=== PATIENT | male | born 1935 | race Caucasian/White ===

== ENCOUNTER 2016-11-18 19:34 | Inpatient (IN) | payer OTHER ==
[~2016-11-18] VITALS: Ht 172.7 cm; Wt 65.8 kg
[~2016-11-18 19:34] MED LIST: BUPIVACAINE /EPINEPHRINE/PF 0.25% 30 ML VIAL INJ ONE; DEXAMETHASONE SOD PHOSPHATE 4 MG/ML VIAL IVP ONE; KETAMINE HCL 500 MG/10 ML VIAL IVP ONE; KETOROLAC TROMETHAMINE 15 MG VIAL IVP ONE; LR 1,000 ML IV.SOLN IV ONE; NS IRRIG SOLN 1000 ML IR ONE; ONDANSETRON HCL 4 MG/2 ML VIAL IVP ONE; PROPOFOL 200MG/ 20ML VIAL (DIPRIVAN) IV ONE; ROCURONIUM BROMIDE 10 MG/ML (ZEMURON) IV ONE; SEVOFLURANE 15 MIN GAS INH ONE; fentaNYL CITRATE 250 MCG/5 ML AMP IV ONE
[2016-11-18 19:41] VITALS: BP_SYST 128
[2016-11-18 20:02] LABS: BASOPHILS % (AUTO) 0.4 % (0.0-2.0); EOSINOPHILS # (AUTO) 0.1 K/uL (0.0-0.4); EOSINOPHILS % (AUTO) 1.8 % (0.0-4.0); HEMATOCRIT 37.1 % (36-54); HEMOGLOBIN 12.4 g/dL (14.0-18.0); LYMPHOCYTES # (AUTO) 2.9 K/uL (1.0-5.5); LYMPHOCYTES % (AUTO) 38.6 % (20.5-51.5); MEAN CORPUSCULAR HEMOGLOBIN 29 pg (27-31); MEAN CORPUSCULAR HGB CONC 33 % (32-36); MEAN CORPUSCULAR VOLUME 88 fL (79.0-98.0); MONOCYTES # (AUTO) 0.7 K/uL (0.0-1.0); MONOCYTES % (AUTO) 8.9 % (1.7-9.3); NEUTROPHILS # (AUTO) 3.9 K/uL (1.8-7.7); NEUTROPHILS % (AUTO) 50.3 % (40.0-70.0); PLATELET COUNT (AUTO) 184 K/uL (130-430); RED BLOOD CELL COUNT(AUTO) 4.22 MIL/uL (4.2-6.2); RED CELL DISTRIBUTION WIDTH 13.5 % (9.0-15.0); WHITE BLOOD COUNT (AUTO) 7.6 K/uL (4.8-10.8)
[2016-11-18 20:07] LABS: CALCIUM 8.3 mg/dL (8.4-11.0); CHLORIDE 105 mmol/L (98-107); CREATININE 1.04 mg/dL (0.55-1.30); GLUCOSE 192 mg/dL (70-99); POTASSIUM 3.9 mmol/L (3.5-5.1); SODIUM SERUM 138 mmol/L (136-145); UREA NITROGEN, BLOOD 29 mg/dL (8-21)
[2016-11-18 20:11] LABS: INR 1.1 (0.80-1.20); PROTHROMBIN TIME 11.5 SECS (9.5-12.5)
[2016-11-18 20:12] LABS: ALANINE AMINOTRANSFERASE 20 U/L (12-78); ALBUMIN 3.1 g/dL (3.4-4.8); ASPARTATE AMINOTRANSFERASE 18 U/L (10-37); CREATINE KINASE, TOTAL 99 U/L (39-308); TOTAL BILIRUBIN 0.3 mg/dL (0.0-1.0); TOTAL PROTEIN, SERUM 6.3 g/dL (6.4-8.3)
[2016-11-18 20:14] LABS: ANION GAP < 3 (5-15)
[2016-11-18] MEDS ORDERED: NITROGLYCERIN 0.4 MG TAB.SUBL SL ONE (20:15)
[2016-11-18] MEDS ORDERED: ASPIRIN 81 MG TAB.CHEW PO ONE (20:15)
[2016-11-18] MEDS ORDERED: ONDANSETRON HCL 4 MG/2 ML VIAL IVP ONE (20:15)
[2016-11-18] MEDS ORDERED: MORPHINE 4 MG/ML INJ. SYRINGE IVP ONE (20:30)
[2016-11-18] MEDS ORDERED: HYDROmorphone 1 MG INJ. 1 MG/ML AMPUL IVP ONE (21:00)
[2016-11-18 23:00] VITALS: BP_SYST 136
[2016-11-18] MEDS ORDERED: NITROGLYCERIN 0.4 MG TAB.SUBL SL PRN (23:00)
[2016-11-18] MEDS ORDERED: PANTOPRAZOLE SODIUM 40 MG/VIAL (PROTONIX) IVP ONE (23:15)
[2016-11-18] MEDS: D5NS 1,000 ML IV SCH (23:39)
[2016-11-18] MEDS ORDERED: cloNIDine HCL 0.1 MG TABLET PO PRN (23:45)
[2016-11-18] MEDS ORDERED: HYDROmorphone 2 MG/ML VIAL IVP PRN (23:45)
[2016-11-19 00:26] VITALS: BP_SYST 123
[2016-11-19 04:36] VITALS: BP_SYST 124
[2016-11-19 06:38] LABS: BASOPHILS % (AUTO) 0.1 % (0.0-2.0); EOSINOPHILS % (AUTO) 0.1 % (0.0-4.0); LYMPHOCYTES # (AUTO) 1.1 K/uL (1.0-5.5); MONOCYTES # (AUTO) 0.8 K/uL (0.0-1.0); WHITE BLOOD COUNT (AUTO) 11.9 K/uL (4.8-10.8)
[2016-11-19 06:47] LABS: HEMATOCRIT 34.8 % (36-54); MEAN CORPUSCULAR HEMOGLOBIN 30 pg (27-31); MEAN CORPUSCULAR HGB CONC 34 % (32-36); MEAN CORPUSCULAR VOLUME 88 fL (79.0-98.0); MONOCYTES % (AUTO) 6.4 % (1.7-9.3); NEUTROPHILS % (AUTO) 84.4 % (40.0-70.0); PLATELET COUNT (AUTO) 158 K/uL (130-430); RED BLOOD CELL COUNT(AUTO) 3.97 MIL/uL (4.2-6.2); RED CELL DISTRIBUTION WIDTH 13.3 % (9.0-15.0)
[2016-11-19 06:52] LABS: ANION GAP 4 (5-15); CALCIUM 8.7 mg/dL (8.4-11.0); CHLORIDE 107 mmol/L (98-107); CREATININE 0.92 mg/dL (0.55-1.30); GLUCOSE 148 mg/dL (70-99); POTASSIUM 4.1 mmol/L (3.5-5.1); SODIUM SERUM 144 mmol/L (136-145); UREA NITROGEN, BLOOD 31 mg/dL (8-21)
[2016-11-19 07:20] LABS: ALANINE AMINOTRANSFERASE 27 U/L (12-78); ALBUMIN 2.9 g/dL (3.4-4.8); ASPARTATE AMINOTRANSFERASE 25 U/L (10-37); TOTAL BILIRUBIN 0.3 mg/dL (0.0-1.0); TOTAL PROTEIN, SERUM 5.9 g/dL (6.4-8.3)
[2016-11-19 08:00] VITALS: BP_SYST 120
[2016-11-19] MEDS ORDERED: IOHEXOL 100 ML IV ONE (09:02)
[2016-11-19] MEDS: PANTOPRAZOLE SODIUM 40 MG/VIAL (PROTONIX) IVP SCH ×2 (10:12→20:33)
[2016-11-19 12:37] VITALS: BP_SYST 127
[2016-11-19] MEDS: ASPIRIN 325 MG TABLET PO SCH (13:09)
[2016-11-19] MEDS: D5NS 1,000 ML IV SCH (15:18)
[2016-11-19 16:17] VITALS: BP_SYST 110
[2016-11-19 20:00] VITALS: BP_SYST 116
[2016-11-20] VITALS: BP_SYST 125
[2016-11-20 04:00] VITALS: BP_SYST 130
[2016-11-20 04:31] LABS: BILIRUBIN,URINE NEGATIVE (NEGATIVE); BLOOD, URINE NEGATIVE (NEGATIVE); CLARITY/URINE CLEAR (CLEAR); COLOR,URINE YELLOW (YELLOW); GLUCOSE,URINE NEGATIVE (NEGATIVE); KETONES,URINE NEGATIVE (NEGATIVE); LEUKOCYTE ESTERASE ,URINE NEGATIVE (NEGATIVE); NITRITE, URINE NEGATIVE (NEGATIVE); PH,URINE 5.5 (5.0-8.0); PROTEIN URINE TRACE (NEGATIVE); UROBILINOGEN,URINE 0.2 (0.2-1.0)
[2016-11-20 04:55] LABS: BACTERIA,URINE FEW /HPF (None Seen); RBC,URINE 0-3 /HPF (0-3); WBC,URINE 0-3 /HPF (0-3)
[2016-11-20 04:56] LABS: MUCUS,URINE 1+ /LPF (None Seen); YEAST,URINE None Seen /HPF (None Seen)
[2016-11-20 06:53] LABS: BASOPHILS % (AUTO) 0.2 % (0.0-2.0); EOSINOPHILS # (AUTO) 0.1 K/uL (0.0-0.4); EOSINOPHILS % (AUTO) 0.6 % (0.0-4.0); HEMATOCRIT 35.4 % (36-54); HEMOGLOBIN 11.9 g/dL (14.0-18.0); LYMPHOCYTES # (AUTO) 1.4 K/uL (1.0-5.5); LYMPHOCYTES % (AUTO) 14.8 % (20.5-51.5); MEAN CORPUSCULAR HEMOGLOBIN 30 pg (27-31); MEAN CORPUSCULAR HGB CONC 34 % (32-36); MEAN CORPUSCULAR VOLUME 89 fL (79.0-98.0); MONOCYTES # (AUTO) 0.9 K/uL (0.0-1.0); NEUTROPHILS # (AUTO) 6.9 K/uL (1.8-7.7); NEUTROPHILS % (AUTO) 74.4 % (40.0-70.0); PLATELET COUNT (AUTO) 146 K/uL (130-430); RED BLOOD CELL COUNT(AUTO) 3.97 MIL/uL (4.2-6.2); RED CELL DISTRIBUTION WIDTH 13.2 % (9.0-15.0); WHITE BLOOD COUNT (AUTO) 9.3 K/uL (4.8-10.8)
[2016-11-20] MEDS: D5NS 1,000 ML IV SCH (06:58)
[2016-11-20 07:01] LABS: ALANINE AMINOTRANSFERASE 19 U/L (12-78); ALBUMIN 2.5 g/dL (3.4-4.8); ASPARTATE AMINOTRANSFERASE 18 U/L (10-37); CHLORIDE 108 mmol/L (98-107); CREATININE 0.95 mg/dL (0.55-1.30); GLUCOSE 119 mg/dL (70-99); POTASSIUM 3.9 mmol/L (3.5-5.1); SODIUM SERUM 139 mmol/L (136-145); TOTAL BILIRUBIN 0.5 mg/dL (0.0-1.0); TOTAL PROTEIN, SERUM 5.7 g/dL (6.4-8.3); UREA NITROGEN, BLOOD 26 mg/dL (8-21)
[2016-11-20 07:03] LABS: ANION GAP < 3 (5-15)
[2016-11-20 07:07] LABS: INR 1.1 (0.80-1.20); PROTHROMBIN TIME 12.2 SECS (9.5-12.5)
[2016-11-20 08:30] VITALS: BP_SYST 118
[2016-11-20] MEDS: ASPIRIN 325 MG TABLET PO SCH (09:00)
[2016-11-20] MEDS: PANTOPRAZOLE SODIUM 40 MG/VIAL (PROTONIX) IVP SCH ×2 (09:39→22:15)
[2016-11-20 12:50] VITALS: BP_SYST 123
[2016-11-20] MEDS ORDERED: LR 1,000 ML IV SCH ×2 (14:25)
[2016-11-20] MEDS ORDERED: HYDROmorphone 1 MG INJ. 1 MG/ML AMPUL IVP PRN ×2 (14:30)
[2016-11-20] MEDS ORDERED: MEPERIDINE HCL/PF 25 MG/ML DISP.SYRIN IVP PRN ×2 (14:30)
[2016-11-20] MEDS ORDERED: HYDROmorphone 2 MG/ML VIAL IVP PRN ×4 (14:30)
[2016-11-20] MEDS ORDERED: HYDROmorphone 2 MG/ML VIAL ONE (14:42)
[2016-11-20 16:55] VITALS: BP_SYST 144
[2016-11-20] MEDS ORDERED: LEVOFLOXACIN 500 MG/D5W 100 ML IV SCH (17:30)
[2016-11-20] MEDS: metroNIDAZOLE 500 mg/NS 100 ML IV SCH ×2 (17:56→22:14)
[2016-11-21 00:31] VITALS: BP_SYST 131
[2016-11-21 03:30] VITALS: BP_SYST 142
[2016-11-21] MEDS: D5NS 1,000 ML IV SCH ×2 (05:38→12:17)
[2016-11-21] MEDS: metroNIDAZOLE 500 mg/NS 100 ML IV SCH ×2 (05:38→13:27)
[2016-11-21 06:33] LABS: BASOPHILS % (AUTO) 0.1 % (0.0-2.0); EOSINOPHILS % (AUTO) 0.1 % (0.0-4.0); HEMATOCRIT 34.1 % (36-54); HEMOGLOBIN 11.6 g/dL (14.0-18.0); LYMPHOCYTES # (AUTO) 0.8 K/uL (1.0-5.5); LYMPHOCYTES % (AUTO) 6.6 % (20.5-51.5); MEAN CORPUSCULAR HEMOGLOBIN 30 pg (27-31); MEAN CORPUSCULAR HGB CONC 34 % (32-36); MEAN CORPUSCULAR VOLUME 89 fL (79.0-98.0); MONOCYTES # (AUTO) 0.9 K/uL (0.0-1.0); MONOCYTES % (AUTO) 7.1 % (1.7-9.3); NEUTROPHILS # (AUTO) 10.7 K/uL (1.8-7.7); NEUTROPHILS % (AUTO) 86.1 % (40.0-70.0); PLATELET COUNT (AUTO) 141 K/uL (130-430); RED BLOOD CELL COUNT(AUTO) 3.83 MIL/uL (4.2-6.2); WHITE BLOOD COUNT (AUTO) 12.4 K/uL (4.8-10.8)
[2016-11-21 06:45] LABS: ASPARTATE AMINOTRANSFERASE 176 U/L (10-37); CALCIUM 7.7 mg/dL (8.4-11.0); POTASSIUM 3.8 mmol/L (3.5-5.1); SODIUM SERUM 138 mmol/L (136-145); TOTAL PROTEIN, SERUM 5.8 g/dL (6.4-8.3); UREA NITROGEN, BLOOD 29 mg/dL (8-21)
[2016-11-21 07:21] LABS: ALANINE AMINOTRANSFERASE 207 U/L (12-78); ALBUMIN 2.3 g/dL (3.4-4.8); ANION GAP 7 (5-15); CHLORIDE 104 mmol/L (98-107); CREATININE 1.03 mg/dL (0.55-1.30); GLUCOSE 161 mg/dL (70-99); TOTAL BILIRUBIN 0.6 mg/dL (0.0-1.0)
[2016-11-21 08:00] VITALS: BP_SYST 141
[2016-11-21] MEDS: ASPIRIN 325 MG TABLET PO SCH (10:21)
[2016-11-21] MEDS: PANTOPRAZOLE SODIUM 40 MG/VIAL (PROTONIX) IVP SCH (10:23)
[2016-11-21 12:00] VITALS: BP_SYST 123
[2016-11-21 14:29] VITALS: BP_SYST 120
== END 2016-11-21 15:30 | disposition home or self-care (01) | DRG 418 ==
LOC: SED 19:34 → STU 22:30
PROVIDERS: ADMIT Internal Medicine Hospice and Palliative Medicine; ATTEND Internal Medicine Hospice and Palliative Medicine
PROC: 0FT44ZZ Resection of Gallbladder, Percutaneous Endoscopic Approach (ICD-10-PCS; principal; 2016-11-20 12:00)
DX: K80.00 Calculus of gallbladder with acute cholecystitis without obstruction (principal); E44.1 Mild protein-calorie malnutrition; K57.90 Diverticulosis of intestine, part unspecified, without perforation or abscess without bleeding; I10 Essential (primary) hypertension; E78.00 Pure hypercholesterolemia, unspecified; E78.5 Hyperlipidemia, unspecified; K66.0 Peritoneal adhesions (postprocedural) (postinfection); K82.8 Other specified diseases of gallbladder; Z68.22 Body mass index [BMI] 22.0-22.9, adult; Z79.82 Long term (current) use of aspirin; Z79.899 Other long term (current) drug therapy
CPT/HCPCS: 36415; 71010; 76700-TC; 80053; 81000-TC; 82550-TC; 83690-TC; 83880; 84484; 85025; 85610-TC; 85730-TC; 87070; 87070-TC; 87075-TC; 87081; 88304; 93005; 96374; 96375; 99285; C1727; C9113; J1100; J1170; J1885; J1956; J2270; J2405; J2704; J3010; J3490; J7042; J7120; Q9967

== ENCOUNTER 2020-03-29 15:08 | Emergency (ER) | payer OTHER ==
[~2020-03-29] VITALS: Ht 172.7 cm; Wt 62.6 kg
[2020-03-29 15:15] VITALS: BP_SYST 158
--- NOTE | 2020-03-29 15:15 | NUR ---
Placed in room 03 . Placed on multi operation machine operator, blood pressure machine and pulse oximeter. To gown for exam. Side rails up. Report given to ESEQUIEL Chong
--- NOTE | 2020-03-29 15:26 | NUR ---
DR RUSSO IN TO ASSESS
--- NOTE | 2020-03-29 15:27 | NUR ---
BLADDER SCAN < 150. PT NON TENDER.
--- NOTE | 2020-03-29 16:17 | NUR ---
ABD X-RAY COMPLETED, PT DENIES CP/SOB. DENEIS FEVER/CHILLS
[2020-03-29] MEDS ORDERED: DIVA250T2 PO (16:19)
[2020-03-29] MEDS ORDERED: MUPI1OIN5 TP (16:19)
[2020-03-29] MEDS ORDERED: PRIM50TA31 PO (16:19)
[2020-03-29] MEDS ORDERED: SIMV-46 PO (16:28)
[2020-03-29] MEDS ORDERED: DONE10TA44 PO (16:28)
[2020-03-29] MEDS ORDERED: LEVO125T8 PO (16:28)
[2020-03-29] MEDS ORDERED: GLIP5TAB13 PO (16:28)
[2020-03-29] MEDS ORDERED: OMEP20CA15 PO (16:28)
[2020-03-29] MEDS ORDERED: DIVA500T4 PO (16:28)
[2020-03-29] MEDS ORDERED: TAMS-11 PO (16:28)
[2020-03-29] MEDS ORDERED: CLOT15CR5 TP (16:28)
[2020-03-29] MEDS ORDERED: VERA180T11 PO (16:28)
[2020-03-29] MEDS ORDERED: RISP2TAB5 PO (16:28)
[2020-03-29] MEDS ORDERED: OXYB5TAB16 PO (16:28)
[2020-03-29] MEDS ORDERED: POTA20TA83 PO (16:28)
[2020-03-29] MEDS ORDERED: QUET400T PO (16:28)
--- NOTE | 2020-03-29 16:40 | NUR ---
OFF TO CT ABD/PELVIS, CALM AND COOPERATIVE
--- NOTE | 2020-03-29 17:30 | NUR ---
DR RUSSO IN TO ASSESS
--- NOTE | 2020-03-29 17:44 | NUR ---
Patient given written and verbal discharge instructions and verbalizes understanding. ER MD discussed with patient the results and treatment provided. Patient in stable condition. ID arm band removed. Rx of mineral oil and mirlax given. Patient educated on pain management and to follow up with PMD. Pain Scale 0/10. Opportunity for questions provided and answered. Medication side effect fact sheet provided.
[2020-03-29 17:49] VITALS: BP_SYST 140
== END 2020-03-29 17:44 | disposition home or self-care (01) ==
LOC: SED 15:08
DX: K59.00 Constipation, unspecified (principal); I10 Essential (primary) hypertension; E78.00 Pure hypercholesterolemia, unspecified; Z90.49 Acquired absence of other specified parts of digestive tract
CPT/HCPCS: 74018; 99284

== ENCOUNTER 2022-08-05 11:48 | Emergency (ER) | payer OTHER ==
[~2022-08-05] VITALS: Ht 172.7 cm; Wt 56.7 kg
--- NOTE | 2022-08-05 12:05 | NUR ---
MD DR CAMARILLO AT BEDSIDE
[2022-08-05 12:08] VITALS: BP_SYST 124
--- NOTE | 2022-08-05 12:19 | NUR ---
PT BIB AWAKE AND ALERT AOX4, NO SOB OR DISTRESS. PT C/O PAIN DUE TO CONSTIPATION X7 DAYS. PT STATES PAIN 8/10. PT HAS HX OF HTN, HDL, PARKINSONS.
[2022-08-05 13:35] LABS: BASOPHILS % (AUTO) 0.2 % (0.0-2.0); EOSINOPHILS % (AUTO) 0.1 % (0.0-4.0); HEMATOCRIT 36.2 % (36-54); HEMOGLOBIN 12.4 g/dL (14.0-18.0); LYMPHOCYTES % (AUTO) 12.5 % (20.5-51.5); MEAN CORPUSCULAR HEMOGLOBIN 30 pg (27-31); MEAN CORPUSCULAR HGB CONC 34 % (32-36); MEAN CORPUSCULAR VOLUME 89 fL (79.0-98.0); MONOCYTES # (AUTO) 0.7 K/uL (0.0-1.0); MONOCYTES % (AUTO) 8.7 % (1.7-9.3); NEUTROPHILS # (AUTO) 6.5 K/uL (1.8-7.7); NEUTROPHILS % (AUTO) 78.5 % (40.0-70.0); PLATELET COUNT (AUTO) 205 K/uL (130-430); RED BLOOD CELL COUNT(AUTO) 4.08 MIL/uL (4.2-6.2); WHITE BLOOD COUNT (AUTO) 8.3 K/uL (4.8-10.8)
[2022-08-05] MEDS ORDERED: LACTULOSE 20 GM/30 ML UDC PO ONE (13:45)
[2022-08-05 13:55] LABS: CHLORIDE 101 mmol/L (98-107)
[2022-08-05 13:56] LABS: ANION GAP 6 (5-15); CALCIUM 8.7 mg/dL (8.4-11.0); CREATININE 0.99 mg/dL (0.55-1.30); GLUCOSE 106 mg/dL (70-99); UREA NITROGEN, BLOOD 37 mg/dL (8-21)
[2022-08-05 14:00] LABS: ALANINE AMINOTRANSFERASE 3 U/L (12-78); ALBUMIN 3.1 g/dL (3.4-4.8); ASPARTATE AMINOTRANSFERASE 14 U/L (10-37); TOTAL BILIRUBIN 0.5 mg/dL (0.0-1.0)
[2022-08-05] MEDS ORDERED: LACT10SO6 PO (15:05)
[2022-08-05 15:19] VITALS: BP_SYST 133
--- NOTE | 2022-08-05 15:21 | NUR ---
Patient given written and verbal discharge instructions and verbalizes understanding. ER MD CAMARILLO discussed with patient the results and treatment provided. Patient in stable condition. ID arm band removed. Rx of LACTULOSE given. Patient educated on pain management and to follow up with PMD. Pain Scale 0/10. Opportunity for questions provided and answered. Medication side effect fact sheet provided.
== END 2022-08-05 15:21 | disposition home or self-care (01) ==
LOC: SED 11:48
DX: K59.00 Constipation, unspecified (principal); R10.84 Generalized abdominal pain; I10 Essential (primary) hypertension; Z79.899 Other long term (current) drug therapy
CPT/HCPCS: 36415; 71045; 76376; 80053; 83605; 85025; 87040; 99285